=== PATIENT | female | born 1980 | race Caucasian/White ===

== ENCOUNTER 2016-12-28 20:20 | Emergency (ER) | payer MEDICAID ==
[~2016-12-28] VITALS: Ht 152.4 cm; Wt 63.6 kg
[2016-12-28 21:15] VITALS: Ht 152.4 cm; Wt 63.6 kg
--- NOTE | 2016-12-28 22:57 | ERD ---
ER Documentation Chief Complaint Date/Time DATE: 12/28/16 TIME: 22:54 Chief Complaint LEFT SIDED NUMBNESS/TINGLING X 1 DAY. HPI 36-year-old female presents here in emergency department for complaints of left neck pain left sided chest pain numbness and tingling in the left arm started today. Patient describes the pain as sharp pain, 6/10 scale, is worse upon movement of the neck area and taking a deep breath. Patient denies any dyspnea on exertion or dyspnea on lying down. Patient denies any dizziness. Patient denies any shortness of breath. Patient denies any cough. ROS All systems reviewed and are negative except as per history of present illness. Medications Home Meds Active Scripts Cyclobenzaprine Hcl* (Cyclobenzaprine Hcl*) 10 Mg Tablet, 10 MG PO TID, #15 TAB Prov:AUGUSTIN CAMP NP 12/29/16 Ibuprofen* (Motrin*) 600 Mg Tab, 600 MG PO Q6H Y for PAIN AND OR ELEVATED TEMP, #30 TAB Prov:AUGUSTIN CAMP NP 12/29/16 Reported Medications [none] Unknown Strength No Conflict Check 12/28/16 Allergies Allergies: Coded Allergies: No Known Drug Allergies (Verified Allergy, Unknown, 12/28/16) PMhx/Soc History of Surgery: Yes () Hx Neurological Disorder: No Hx Respiratory Disorders: No Hx Cardiac Disorders: No Hx Psychiatric Problems: No Hx Miscellaneous Medical Probl: No Hx Alcohol Use: No Hx Substance Use: No Hx Tobacco Use: No Smoking Status: Never smoker FmHx Family History: No coronary disease, No diabetes, No other Physical Exam Vitals Vital Signs Date Time Temp Pulse Resp B/P Pulse Ox O2 Delivery O2 Flow Rate FiO2 12/28/16 21:15 98.4 73 18 133/83 100 Physical Exam GENERAL: The patient is well developed and appropriate for usual state of health, in no apparent distress. CHEST: Clear to auscultation bilaterally. There are no rales, wheezes or rhonchi. tenderness on palpation on the left chest area HEART: Regular rate and rhythm. No murmurs, clicks, rubs or gallops. No S3 or S4. ABDOMEN: Soft, nontender and nondistended. Good bowel sounds. No rebound or guarding. No gross peritonitis. No gross organomegaly or masses. No Rodriguez sign or McBurney point tenderness. BACK: No midline or flank tenderness.muscle spasms noted in the left paraspinal aspect of the cervical spine. EXTREMITIES: Equal pulses bilaterally. There is no peripheral clubbing, cyanosis or edema. No focal swelling or erythema. Full range of motion. Grossly neurovascularly intact. NEURO: Alert and oriented. Cranial nerves 2-12 intact. Motor strength in all 4 extremities with 5/5 strength. Sensation grossly intact. Normal speech and gait. SKIN: There is no apparent rash or petechia. The skin is warm and dry. HEMATOLOGIC AND LYMPHATIC: There is no evidence of excessive bruising or lymphedema. No gross cervical, axillary, or inguinal lymphadenopathy. Results 24 hrs EKG was done, read by me and is normal sinus rhythm at a rate of 71, normal axis , there is no ST changes or changes in the EKG that indicates any cardiac emergencies at this time. Patient's EKG was also reviewed by Dr. Mckoy. Impression: no acute findings on EKG Procedures/MDM Medical Decision Making: Patient's symptoms Is consistent with neck strain and chest wall strain.There is low suspicion for cardiopulmonary emergencies at this time. Patient has low risk factors. EKG is normal, there is no changes in the EKG that indicates cardiac emergencies. Chest X-ray does not show cardiopulmonary emergencies at this time. There is low suspicion for aortic aneurysm, myocardial infarction, pneumothorax, pleural effusion, pulmonary embolism, or any other cardiopulmonary emergencies at this time. Rx: IBUPROFEN, FLEXERIL Dispostion: Home. Stable Departure Diagnosis: Primary Impression: Chest wall pain Additional Impression: Neck strain Encounter type: initial encounter Qualified Code: S16.1XXA - Strain of neck muscle, initial encounter Condition: Stable AUGUSTIN CAMP NP Dec 28, 2016 22:57
--- NOTE | 2016-12-29 00:13 | RADRPT ---
PROCEDURE: CHEST - 1 VIEW CLINICAL INDICATION: 36-year-old female with chest pain. TECHNIQUE: A single frontal AP semi-erect portable view of the chest was performed. The images we re reviewed on a PACS workstation. COMPARISON: None. FINDINGS: The cardiomediastinal silhouette has a normal appearance. There is no evidence for an infiltrate. There is no evidence for congestive heart failure. There is no evidence for pneumothorax. The osseou s structures are intact. IMPRESSION: No evidence for active cardiopulmonary disease. .Silver Wells MD, MD Date Time Electronically viewed and signed by .Silver Wells MD, MD on 12/29/2016 00:13 .M/
[2016-12-29] MEDS ORDERED: CYCL-319 PO (00:22)
[2016-12-29] MEDS ORDERED: IBUP-1542 PO (00:22)
[2016-12-29 00:32] VITALS: BP 127/81; PULSE 81; RESP 18
== END 2016-12-29 00:34 | disposition home or self-care (01) ==
LOC: FTE 20:20
DX: R07.89 Other chest pain (principal); S16.1XXA Strain of muscle, fascia and tendon at neck level, initial encounter; X58.XXXA Exposure to other specified factors, initial encounter; Y92.9 Unspecified place or not applicable
CPT/HCPCS: 71010; 93005; Z7502